=== PATIENT | female | born 1960 | race Asian ===

== ENCOUNTER 2018-12-05 05:24 | Day surgery (SDC) | payer OTHER ==
[2018-11-28 09:38] LABS: HEMATOCRIT 44.2 % (36.0-47.0); HEMOGLOBIN 15.1 g/dL (12.0-15.5); MEAN CORPUSCULAR HEMOGLOBIN 30.1 pg (27.0-33.4); MEAN CORPUSCULAR HGB CONC 34.1 g/dL (32.0-36.0); MEAN CORPUSCULAR VOLUME 88 fl (80-97); PLATELET COUNT 277 10^3/uL (150-450); WHITE BLOOD COUNT 6.7 10^3/uL (4.0-10.5)
[2018-11-28 10:04] LABS: ALANINE AMINOTRANSFERASE 46 U/L (9-52); ALBUMIN 4.6 g/dL (3.5-5.0); ALKALINE PHOSPHATASE 88 U/L (38-126); ANION GAP 12 (5-19); ASPARTATE AMINO TRANSFERASE 33 U/L (14-36); BILIRUBIN,DIRECT 0.3 mg/dL (0.0-0.4); BILIRUBIN,TOTAL 0.6 mg/dL (0.2-1.3); BLOOD UREA NITROGEN 15 mg/dL (7-20); CALCIUM 9.8 mg/dL (8.4-10.2); CARBON DIOXIDE 26 mmol/L (22-30); CHLORIDE 102 mmol/L (98-107); GLUCOSE 95 mg/dL (75-110); POTASSIUM 4.2 mmol/L (3.6-5.0); SODIUM 139.6 mmol/L (137-145); TOTAL PROTEIN 7.5 g/dL (6.3-8.2)
[~2018-12-05 05:24] MED LIST: CEFAZOLIN SODIUM 2 GM in DEXTROSE 5%-WATER 100 ML IV PRN; LACTATED RINGERS 1000 ML IV PRN; LIDOCAINE 0.5% INJ-PF (5 MG/ML) 50 ML SDV SUBCUT PRN; RINGERS SOLUTION,LACTATED 1,000 ML IV PRN
[2018-12-05] MEDS ORDERED: PROPOFOL INJ 200 MG/20 ML VIAL IV ONE (07:17)
[2018-12-05] MEDS ORDERED: BUPIVACAINE HCL 0.25 % INJ/PF (2.5 MG/1 ML) 30 ML VIAL ONE (07:17)
[2018-12-05] MEDS ORDERED: MIDAZOLAM 2 MG/2 ML INJ ONE (07:17)
[2018-12-05] MEDS ORDERED: HYDROMORPHONE HCL INJ/PF 2 MG/ML AMPULE ONE (07:17)
[2018-12-05] MEDS ORDERED: ACETAMINOPHEN 1,000 MG/100 ML RTUPB IV ONE (07:17)
[2018-12-05] MEDS ORDERED: METHYLENE BLUE 50 MG/10 ML AMPULE ONE (07:17)
[2018-12-05] MEDS ORDERED: FENTANYL CITRATE INJ/PF 250 MCG/5 ML AMPULE ONE (07:17)
[2018-12-05] MEDS ORDERED: EPHEDRINE SULFATE INJ 50 MG/1 ML AMPULE ONE (07:18)
[2018-12-05] MEDS ORDERED: OXYCODONE-ACETAMINOPHEN 5-325 MG TABLET PO PRN ×3 (09:56→10:29)
[2018-12-05] MEDS ORDERED: DIPHENHYDRAMINE HCL 50 MG/ML VIAL IV PRN (09:56)
[2018-12-05] MEDS ORDERED: PROMETHAZINE HCL INJ 25 MG/1 ML VIAL IV PRN ×3 (09:56→10:31)
[2018-12-05] MEDS ORDERED: FENTANYL CITRATE INJ/PF 100 MCG/2 ML AMPUL IV PRN ×3 (09:56)
[2018-12-05] MEDS ORDERED: MORPHINE SULFATE 10 MG/ML INJ IV PRN ×2 (09:56→10:30)
[2018-12-05] MEDS ORDERED: MEPERIDINE HCL/PF INJ 25 MG/1 ML DISP.SYRIN IV PRN (09:56)
[2018-12-05] MEDS ORDERED: FENTANYL CITRATE INJ/PF 100 MCG/2 ML AMPUL ONE (10:27)
[2018-12-05] MEDS ORDERED: OXYCODONE HCL IR 5 MG TABLET PO PRN (10:30)
[2018-12-05] MEDS ORDERED: ONDANSETRON HCL INJ/PF 4 MG/2 ML SDV IV PRN (10:31)
[2018-12-05] MEDS ORDERED: LIDOCAINE 2% INJ-PF (20 MG/ML) 2 ML AMPUL ONE (12:48)
[2018-12-05] MEDS ORDERED: NEOSTIGMINE METHYLSULFATE 10 MG/10 ML VIAL ONE (12:48)
[2018-12-05] MEDS ORDERED: ROCURONIUM BROMIDE INJ 50 MG/5 ML VIAL IV ONE (12:48)
[2018-12-05] MEDS ORDERED: ONDANSETRON HCL INJ/PF 4 MG/2 ML SDV ONE (12:48)
[2018-12-05] MEDS ORDERED: GLYCOPYRROLATE 1 MG/5 ML SYRINGE ONE (12:48)
[2018-12-05] MEDS ORDERED: DEXAMETHASONE SOD PHOSPHATE INJ 4 MG/1 ML VIAL ONE (12:48)
[2018-12-05 16:26] VITALS: BP 133/96
--- NOTE | 2018-12-08 14:50 | OPERATIVE REPORT E ---
Operative Report NAME: JASEN DEAN : 1960 AGE: 57Y DATE OF SURGERY: 12/05/2018 ROOM: 223 PREOPERATIVE DIAGNOSES: 1. Large multiple uterine leiomyomas. 2. Pelvic pain. 3. Postmenopausal bleeding that occurred almost a year ago and has resolved x1 episode. POSTOPERATIVE DIAGNOSES: 1. Large multiple uterine leiomyomas. 2. Pelvic pain. 3. Postmenopausal bleeding that occurred almost a year ago and has resolved x1 episode. OPERATION: 1. Robotic total laparoscopic hysterectomy. 2. Bilateral salpingo-oophorectomy. 3. Cystoscopy. SURGEON: Arleth Bueno ESTIMATED BLOOD LOSS: 150 mL URINE OUTPUT: 200 mL clear urine at end of procedure. FLUIDS: 1300 mL COMPLICATIONS: None. SPECIMENS: Uterus, tubes, ovaries bilaterally. Fibroids, cervix. DISPOSITION: To PACU, stable. To be discharged later today once meets discharge criteria. CONSENT: The patient is a 57-year-old G5, P2, who presented almost a year ago with postmenopausal bleeding episode x1, who had a negative endometrial biopsy, but had large multiple uterine fibroids, and she has had serial ultrasounds for these fibroids, and in the process these fibroids have remained large or slightly increased in size. The patient was experiencing pelvic pain and pressure, and the decision was to go ahead and proceed with a hysterectomy. The patient was consented for the procedure of robotic hysterectomy including but not limited to the risks involved of bleeding, infection, injury to bowel, bladder, risk of transfusion, possible exploratory laparotomy and any other indicated procedures. The patient agreed to consent and proceeded to the operating room. PROCEDURE: The patient was taken to the operating room. General anesthesia was achieved without difficulty. She was prepped and draped in the usual sterile fashion. From below, a heavy weighted speculum was inserted and a Amador retractor anteriorly was introduced. The cervix was visualized, grasped with a single tooth tenaculum and cervical os was dilated with Hegar dilators. VCare manipulator was introduced without any difficulty. Insufflated the balloon and anchored in place. Ksaimo-uw-mghvt stitches around 3 and 9 o'clock were introduced as well, and anchored within the VCare itself. At this point, a heavy weighted speculum and tenaculum were removed, and attention was turned to above for trocar placement. Approximately 1 to 2 cm supraumbilical horizontal incision for a 10 mm port was performed. Veress needle introduced without difficulty. Drop test was successful. Carbon dioxide was used to insufflate the abdomen successfully. Three additional ports were inserted under direct visualization after laparoscopic confirmation with anterior abdominal placement and one in the right lower and one in the left lower quadrant, and one in the right upper quadrant. All were inserted under direct visualization without any problems or complications. At this point, the robot was docked appropriately and the procedure was initiated. On the right side, the infundibulopelvic ligament was grasped, cauterized, and transected all the way through the uterovarian ligament and all the way to the cornual region of the fallopian tube. The right round ligament was cauterized and transected all the way down to the level of the uterine vessels as well. On the contralateral side, the left infundibulopelvic ligament was grasped, cauterized, and transected along the uterovarian ligament, all the way to the cornual region of the uterus. The round ligaments were cauterized and transected all the way down to the level of the uterine vessels as well on this side, performed successfully. Prior to performing the infundibulopelvic ligament cauterization and transection with a vessel seal, there were some omental adhesions to segments of the bowel that were detached with traction, and there was a segment that had a band in it, and the band was clear, was cauterized and transected as well with a vessel seal without any problems. On the right side, the anterior leaf of the broad ligament was identified, cauterized, and transected, and then the bladder flap was created on the right side and connected to the left side, and then the bladder was pushed all the way down away from the cervical procedure carefully. There were multiple oozing spots, and those were cauterized and transected along the way. Prior to performing all of this, both ureters were identified and were peristalsing well away from the surgical field at all times, and at this point after the bladder was pushed down, an anterior colpotomy was performed, and a posterior colpotomy was performed. The portion of the VCare was visualized and in a circumferential manner the colpotomy was connected from anterior to the posterior aspect. At this point, the uterus, cervix, tubes, ovaries, and the fibroids bilaterally were removed vaginally. At this point, the vaginal point was closed with V-Lock suture in running continuous fashion. Hemostasis was obtained. Small oozers from the pelvic sidewall were identified. Those were cauterized with bipolar after multiple irrigation and suction back and forth. Hemostasis was obtained. Prophylactic FloSeal was injected along the vaginal cuff, and the pelvic sidewall. At this point, the hysterectomy portion was complete. The abdomen was desufflated. Trocars were removed. From below, the cystoscopy portion was performed. Methylene blue was introduced during the closure of the vaginal cuff, and I asked Anesthesia to methylene blue, and upon cystoscopy was visualized. No trauma or foreign body visualized in the bladder, and both the right and left ureteral orifices were visualized with strong efflux flow of methylene blue. At this point, a cystoscopy portion was completed. The vaginal mucosa was inspected. There were no lacerations. The labia majora and minora were both visualized without any injury to them. At this point, attention was turned back from above, where all the trocar sites were reapproximated with a 4-0 Monocryl in a running continuous fashion. The sub and supraumbilical incision was reapproximated initially with a UR6. Reapproximated the fascia and everything else was closed with 4-0 Monocryl in running continuous fashion. The patient tolerated the procedure well. Sponge, lap, and needle counts were correct x2. The patient was taken to the recovery room in stable condition. Her specimens were taken to Pathology for further specimen examination. DICTATING PHYSICIAN: Arleth Bueno MD [id number] PHY#: [id number] ID: [id number] JOB#: [id number] ACCT: [id number] cc:Arleth Bueno >
== END 2018-12-05 16:30 | disposition home or self-care (01) ==
LOC: OROUT 05:24 → 2S 11:44 → OROUT 16:30
PROVIDERS: ATTEND Obstetrics & Gynecology
DX: N72 Inflammatory disease of cervix uteri (principal); N80.0 Endometriosis of uterus; D25.9 Leiomyoma of uterus, unspecified; R10.2 Pelvic and perineal pain; I10 Essential (primary) hypertension
CPT/HCPCS: 58571; S2900; 36415; 80053; 81025; 840; 84132; 85027; 86850; 86900; 86901; 88307; J0131; J0690; J1100; J1170; J2250; J2405; J2704; J3010; J3490; Q9968